=== PATIENT | female | born 1935 | race Caucasian/White ===

== ENCOUNTER 2017-02-23 15:20 | Inpatient (IN) | payer MEDICARE, OTHER ==
[~2017-02-23] VITALS: Ht 167.6 cm; Wt 67.7 kg
[2017-02-23] MEDS ORDERED: LISI40TA PO (17:13)
[2017-02-23] MEDS ORDERED: PEN400T PO (17:13)
[2017-02-23] MEDS ORDERED: METO-158 PO (17:13)
[2017-02-23] MEDS ORDERED: ALEN35TA18 PO (17:13)
[2017-02-23] MEDS ORDERED: ESCI10TA PO (17:13)
[2017-02-23] MEDS ORDERED: DICL-176 PO (17:13)
[2017-02-23] MEDS ORDERED: HCTZ25T PO (17:13)
[2017-02-23 17:39] LABS: Basophils # (auto) 0 uL; Basophils % (auto) 0.4 % (0.0-2.0); Eosinophils # (auto) 0.1 uL; Eosinophils % (auto) 1.1 % (0.0-7.0); Hematocrit 36.9 % (36.0-46.0); Hemoglobin 12.2 g/dL (12.2-16.2); Lymphocytes # (auto) 0.9 uL; Lymphocytes % (auto) 8.8 % (10.0-50.0); Mean Corpuscular Hemoglobin 31.1 pg (28.0-32.0); Mean Corpuscular Volume 94.2 fL (80.0-100.0); Monocytes # (auto) 0.5 uL; Monocytes % (auto) 5.3 % (0.0-12.0); Neutrophils # (auto) 8.6 uL; Neutrophils % (auto) 84.4 % (37.0-80.0); Platelet Count (auto) 379 10^3/uL (140-450); Red Blood Cells 3.92 10^6/uL (4.0-5.20); Red Cell Distribution Width 13.7 % (11.8-14.3); White Blood Cell 10.2 10^3/uL (4.4-10.8)
[2017-02-23 17:48] LABS: Alanine Aminotransferase 32 U/L (13-56); Albumin 3.5 g/dL (3.4-5.0); Alkaline Phosphatase 92 U/L (45-117); Anion Gap 9 (5-15); Aspartate Aminotransferase 23 U/L (15-37); BUN/Creatinine Ratio 33.3; Bilirubin, Total 0.4 mg/dL (0.2-1.0); Blood Urea Nitrogen 37 mg/dL (7-18); Calcium 8.7 mg/dL (8.5-10.1); Carbon Dioxide 24 mmol/L (21-32); Chloride 109 mmol/L (98-107); GFR African American 61 mL/min; GFR Non-African American 50 mL/min; Glucose 120 mg/dL (74-106); Magnesium 2.3 mg/dL (1.6-2.6); Potassium 3.8 mmol/L (3.5-5.1); Sodium 142 mmol/L (136-145); Total Protein 6.8 g/dL (6.4-8.2)
[2017-02-23 18:26] LABS: INR 0.97 (0.9-1.15); Partial Thromboplastin Time 22.6 sec (22.64-33.71); Prothrombin Time 10.6 sec (9.37-12.3)
[2017-02-23] MEDS ORDERED: ACETAMINOPHEN 325 MG TAB PO PRN (19:45)
[2017-02-23] MEDS ORDERED: DOCUSATE SOD 100 MG CAP PO PRN (19:45)
[2017-02-23] MEDS ORDERED: TEMAZEPAM 15 MG CAP PO PRN (19:45)
[2017-02-23] MEDS ORDERED: HYDROcodone-ACET 5/325MG TAB PO PRN (19:45)
[2017-02-23] MEDS ORDERED: NITROGLYCERIN 0.4 MG SL TAB SL PRN (19:45)
[2017-02-23] MEDS ORDERED: ONDANSETRON HCL 4 MG/2 ML VIAL IV PRN (19:45)
[2017-02-23] MEDS ORDERED: ALENDRONATE SODIUM 10 MG TAB PO SCH (19:45)
[2017-02-23] MEDS ORDERED: ASPirin-EC 81 mg tab PO ONE (19:45)
[2017-02-23] MEDS ORDERED: MORPHINE SULFATE 10 MG/ML INJ 1ML SDV IV PRN ×2 (19:45)
[2017-02-23] MEDS: ENOXAPARIN SOD 40 MG/0.4 ML SYRINGE SC SCH (19:56)
[2017-02-23] MEDS: FAMOTIDINE 20 MG TAB PO SCH (19:57)
[2017-02-23 22:00] VITALS: BP 157/82
[2017-02-23 22:30] VITALS: BP 157/82
[2017-02-24] VITALS (7 sets, daily range): BP systolic 98–150; BP diastolic 47–77
[2017-02-24] MEDS: SODIUM CHLOR 0.9% PF (SALINE LOCK) 10ML VIAL IV SCH ×4 (00:02→22:01)
[2017-02-24] MEDS: METOPROLOL TARTRATE 50 MG TAB PO SCH ×3 (00:03→22:03)
[2017-02-24] MEDS: PENTOXIFYLLINE 400 MG ER TAB PO SCH ×3 (00:03→22:03)
[2017-02-24] MEDS: DICLOFENAC 100 MG PO SCH ×3 (00:04→22:00)
[2017-02-24] MEDS: ATORVASTATIN 20 MG TAB PO SCH ×2 (00:06→22:01)
[2017-02-24 05:41] LABS: Urine Bacteria MANY /hpf (None Seen); Urine Blood Negative /uL (Negative); Urine Hyaline Cast FEW /lpf (0 - 2); Urine Mucus FEW (None Seen); Urine Specific Gravity 1.015 (1.001-1.035); Urine WBC 24 /hpf (0 - 5)
[2017-02-24 08:50] LABS: Basophils # (auto) 0 uL; Basophils % (auto) 0.6 % (0.0-2.0); Eosinophils # (auto) 0.2 uL; Eosinophils % (auto) 2.1 % (0.0-7.0); Hemoglobin 11.9 g/dL (12.2-16.2); Lymphocytes # (auto) 1.9 uL; Lymphocytes % (auto) 24.6 % (10.0-50.0); Mean Corpuscular Hemoglobin 31.5 pg (28.0-32.0); Mean Corpuscular Volume 92.6 fL (80.0-100.0); Monocytes # (auto) 0.5 uL; Neutrophils % (auto) 65.7 % (37.0-80.0); Nucleated Red Blood Cells % 0.1 %; Platelet Count (auto) 363 10^3/uL (140-450); Red Blood Cells 3.78 10^6/uL (4.0-5.20); Red Cell Distribution Width 13.5 % (11.8-14.3); White Blood Cell 7.6 10^3/uL (4.4-10.8)
[2017-02-24 09:21] LABS: Albumin 3.5 g/dL (3.4-5.0); BUN/Creatinine Ratio 35.2; Bilirubin, Total 0.5 mg/dL (0.2-1.0); Calcium 8.9 mg/dL (8.5-10.1); Potassium 3.7 mmol/L (3.5-5.1); Total Protein 6.9 g/dL (6.4-8.2)
[2017-02-24] MEDS: CITALOPRAM HYDROBR 20 MG TAB PO SCH (09:38)
[2017-02-24] MEDS: FAMOTIDINE 20 MG TAB PO SCH (09:38)
[2017-02-24] MEDS: MULTIPLE VITAMIN TAB PO SCH (09:38)
[2017-02-24] MEDS: HCTZ 25 MG TAB PO SCH (09:40)
[2017-02-24] MEDS: LISINOPRIL 20 MG TAB PO SCH (09:41)
[2017-02-24] MEDS: ASPirin-EC 81 mg tab PO SCH (09:41)
[2017-02-24] MEDS: ENOXAPARIN SOD 40 MG/0.4 ML SYRINGE SC SCH (09:42)
[2017-02-24] MEDS ORDERED: cefTRIAXone 1GM/10ml IVPUSH 10 ML IV ONE (13:00)
[2017-02-24] MEDS ORDERED: LORazepam 2MG/ML-1ML VIAL IV PRN (20:45)
[2017-02-25] VITALS (7 sets, daily range): BP systolic 0–143; BP diastolic 53–92
[2017-02-25] MEDS: SODIUM CHLOR 0.9% PF (SALINE LOCK) 10ML VIAL IV SCH ×3 (05:25→22:00)
[2017-02-25] MEDS: cefTRIAXone 1GM/10ml IVPUSH 10 ML IV SCH (09:26)
[2017-02-25] MEDS: PENTOXIFYLLINE 400 MG ER TAB PO SCH ×2 (09:26→22:37)
[2017-02-25] MEDS: LISINOPRIL 20 MG TAB PO SCH (09:26)
[2017-02-25] MEDS: HCTZ 25 MG TAB PO SCH (09:27)
[2017-02-25] MEDS: ASPirin-EC 81 mg tab PO SCH (09:27)
[2017-02-25] MEDS: METOPROLOL TARTRATE 50 MG TAB PO SCH ×2 (09:27→22:38)
[2017-02-25] MEDS: CITALOPRAM HYDROBR 20 MG TAB PO SCH (09:27)
[2017-02-25] MEDS: FAMOTIDINE 20 MG TAB PO SCH (09:27)
[2017-02-25] MEDS: MULTIPLE VITAMIN TAB PO SCH (09:28)
[2017-02-25] MEDS: ENOXAPARIN SOD 40 MG/0.4 ML SYRINGE SC SCH (09:28)
[2017-02-25] MEDS: DICLOFENAC 100 MG PO SCH ×2 (09:31→22:00)
[2017-02-25] MEDS: ATORVASTATIN 20 MG TAB PO SCH (22:37)
[2017-02-26 05:00] VITALS: BP 104/49
[2017-02-26] MEDS: SODIUM CHLOR 0.9% PF (SALINE LOCK) 10ML VIAL IV SCH (05:54)
[2017-02-26 08:00] VITALS: BP 90/40
[2017-02-26 08:48] VITALS: BP 90/40
[2017-02-26] MEDS: cefTRIAXone 1GM/10ml IVPUSH 10 ML IV SCH (09:00)
[2017-02-26] MEDS: ENOXAPARIN SOD 40 MG/0.4 ML SYRINGE SC SCH (10:00)
[2017-02-26] MEDS: HCTZ 25 MG TAB PO SCH (10:00)
[2017-02-26] MEDS: DICLOFENAC 100 MG PO SCH (10:00)
[2017-02-26] MEDS: ASPirin-EC 81 mg tab PO SCH (10:00)
[2017-02-26] MEDS: LISINOPRIL 20 MG TAB PO SCH (10:00)
[2017-02-26] MEDS: METOPROLOL TARTRATE 50 MG TAB PO SCH (10:00)
[2017-02-26] MEDS: FAMOTIDINE 20 MG TAB PO SCH (10:46)
[2017-02-26] MEDS: PENTOXIFYLLINE 400 MG ER TAB PO SCH (10:46)
[2017-02-26] MEDS: MULTIPLE VITAMIN TAB PO SCH (10:46)
[2017-02-26] MEDS: CITALOPRAM HYDROBR 20 MG TAB PO SCH (10:46)
[2017-02-26 11:38] VITALS: BP 90/40
[2017-02-26 13:28] VITALS: BP 124/64
== END 2017-02-26 12:40 | disposition home or self-care (01) | DRG 690 ==
LOC: ER 15:26 → TELE 15:27 → TELE-EAST 21:38
PROVIDERS: ADMIT Internal Medicine; ATTEND Family Medicine
DX: N39.0 Urinary tract infection, site not specified (principal); E86.0 Dehydration; G45.9 Transient cerebral ischemic attack, unspecified; I73.9 Peripheral vascular disease, unspecified; Y92.89 Other specified places as the place of occurrence of the external cause; Y99.8 Other external cause status; N18.3 Chronic kidney disease, stage 3 (moderate); W19.XXXA Unspecified fall, initial encounter; F41.9 Anxiety disorder, unspecified; I12.9 Hypertensive chronic kidney disease with stage 1 through stage 4 chronic kidney disease, or unspecified chronic kidney disease; M19.90 Unspecified osteoarthritis, unspecified site; M81.0 Age-related osteoporosis without current pathological fracture; Y93.89 Activity, other specified; Z82.49 Family history of ischemic heart disease and other diseases of the circulatory system; Z82.3 Family history of stroke
CPT/HCPCS: 36415; 70450; 71045; 80053; 81001; 83735; 84484; 85025; 85610; 85730; 87040; 87086; 92610; 93005; 93306; 93886; 94761; 95819

== ENCOUNTER 2023-07-30 17:02 | Inpatient (IN) | payer MEDICARE ==
[~2023-07-30] VITALS: Ht 167.6 cm; Wt 66.7 kg
[~2023-07-30 17:02] MED LIST: ALEN35TA18 PO; DICL75TA3 PO; ESCI10TA PO; HYDR25TA5 PO; LISI40TA16 PO; METO-158 PO; PEN400T PO
[2023-07-30] MEDS: SODIUM CHLORIDE 0.9% 1,000 ML IV ONE (17:26)
[2023-07-30 17:29] VITALS: PULSE 76; RESP 18; O2SAT 95
[2023-07-30 18:08] LABS: Basophils # (auto) 0.1 10 ^3/uL (0-0.2); Basophils % (auto) 0.6 % (0.0-2.0); Eosinophils # (auto) 0.1 10 ^3/uL (0-0.8); Eosinophils % (auto) 1.4 % (0.0-7.0); Hematocrit 39.7 % (36.0-46.0); Hemoglobin 13.2 g/dL (12.2-16.2); Lymphocytes # (auto) 1.6 10 ^3/uL (0.4-5.4); Lymphocytes % (auto) 18.5 % (10.0-50.0); Mean Corpuscular Hemoglobin 30.7 pg (28.0-32.0); Mean Corpuscular Hgb Conc. 33.3 g/dL (32.0-36.0); Monocytes # (auto) 0.4 10 ^3/uL (0-1.3); Monocytes % (auto) 5.1 % (0.0-12.0); Neutrophils # (auto) 6.4 10 ^3/uL (1.6-8.6); Neutrophils % (auto) 74.4 % (37.0-80.0); Nucleated Red Blood Cells % 0.1 %; Red Blood Cells 4.31 10^6/uL (4.0-5.20); Red Cell Distribution Width 14.6 % (11.8-14.3); White Blood Cell 8.5 10^3/uL (4.4-10.8)
[2023-07-30 18:10] LABS: Chloride 110 mmol/L (98-107); Potassium 4.2 mmol/L (3.5-5.1); Sodium 142 mmol/L (136-145)
[2023-07-30 18:11] LABS: Anion Gap 5 (5-15); Calcium 10.1 mg/dL (8.7-10.4); Carbon Dioxide 27 mmol/L (20-30)
[2023-07-30 18:16] LABS: Blood Urea Nitrogen 15 mg/dL (9-23); Glucose 131 mg/dL (74-106); Lipase 55 U/L (12-53)
[2023-07-30 20:15] VITALS: PULSE 85; RESP 20; O2SAT 95
[2023-07-30] MEDS ORDERED: DOCUSATE SOD 100 MG CAP PO PRN (22:45)
[2023-07-30] MEDS ORDERED: HYDROcodone-ACET 5/325MG TAB PO PRN (22:45)
[2023-07-30] MEDS ORDERED: NITROGLYCERIN 0.4 MG SL TAB SL PRN (22:45)
[2023-07-30] MEDS ORDERED: MORPHINE SULFATE INJ 2 MG/ml SYRG IV PRN (22:45)
[2023-07-30] MEDS ORDERED: ONDANSETRON HCL 4 MG/2 ML VIAL IV PRN (22:45)
[2023-07-30] MEDS ORDERED: ACETAMINOPHEN 325 MG TAB PO PRN (22:45)
[2023-07-30] MEDS ORDERED: DEXTROSE (50%) 50ML SYRG IV PRN (22:45)
[2023-07-30] MEDS ORDERED: hydrALAZINE HCL 20 MG/ML VL IV PRN (22:45)
[2023-07-30 23:26] LABS: Urine Bacteria None Seen /hpf (None Seen); Urine WBC None Seen /hpf (0 - 5)
[2023-07-30 23:43] LABS: Urine Blood Negative /uL (Negative); Urine Clarity Turbid (Clear); Urine Color Yellow (Yellow); Urine Protein, UAD TRACE (Negative); Urine Urobilinogen Normal (Negative); Urine pH 5.5 (5.0-9.0)
[2023-07-31] VITALS (11 sets, daily range): BP systolic 119–159; BP diastolic 36–85; PULSE 72–121; RESP 16–18; TEMP 97.4–98.7; O2SAT 93–100
[2023-07-31] MEDS: SODIUM CHLOR 0.9% PF (SALINE LOCK) 10ML VIAL/SYR IV SCH (05:39)
[2023-07-31] MEDS: InsuLIN REG 1unit/0.01ml Soln (100units/ml) SC SCH ×2 (06:24→22:00)
[2023-07-31] MEDS: ACCU-CHEK COMFORT CURVE STRIP VI SCH (06:24)
[2023-07-31 06:57] LABS: Basophils # (auto) 0 10 ^3/uL (0-0.2); Basophils % (auto) 0.6 % (0.0-2.0); Eosinophils # (auto) 0.1 10 ^3/uL (0-0.8); Eosinophils % (auto) 2.1 % (0.0-7.0); Hematocrit 32.9 % (36.0-46.0); Hemoglobin 11.2 g/dL (12.2-16.2); Lymphocytes # (auto) 2.1 10 ^3/uL (0.4-5.4); Lymphocytes % (auto) 29.9 % (10.0-50.0); Mean Corpuscular Hgb Conc. 34.1 g/dL (32.0-36.0); Mean Corpuscular Volume 90.9 fL (80.0-100.0); Monocytes # (auto) 0.4 10 ^3/uL (0-1.3); Neutrophils # (auto) 4.3 10 ^3/uL (1.6-8.6); Neutrophils % (auto) 61.4 % (37.0-80.0); Nucleated Red Blood Cells % 0.1 %; Red Blood Cells 3.62 10^6/uL (4.0-5.20); Red Cell Distribution Width 14.4 % (11.8-14.3); White Blood Cell 6.9 10^3/uL (4.4-10.8)
[2023-07-31 07:30] LABS: Alanine Aminotransferase 17 U/L (7-40); Albumin 3.5 g/dL (3.2-4.8); Alkaline Phosphatase 85 U/L (46-116); Anion Gap 5 (5-15); Aspartate Aminotransferase 20 U/L (13-40); BUN/Creatinine Ratio 23.3 (10.0-20.0); Bilirubin, Total 0.6 mg/dL (0.2-1.0); Blood Urea Nitrogen 14 mg/dL (9-23); Calcium 8.8 mg/dL (8.5-10.1); Carbon Dioxide 25 mmol/L (20-30); Chloride 113 mmol/L (98-107); Glucose 73 mg/dL (74-106); Potassium 3.8 mmol/L (3.5-5.1); Sodium 143 mmol/L (136-145); Total Protein 5.4 g/dL (5.7-8.2)
[2023-07-31] MEDS: METOPROLOL TARTRATE 25 MG TAB PO SCH (09:35)
[2023-08-01 01:00] VITALS: BP 134/76; PULSE 77; RESP 18; TEMP 98.1; O2SAT 96
[2023-08-01 05:00] VITALS: BP 137/72; PULSE 62; RESP 16; TEMP 98; O2SAT 94
[2023-08-01 08:00] VITALS: PULSE 80; PULSE 99; RESP 16
[2023-08-01 09:03] VITALS: BP 150/78; PULSE 69; RESP 17; TEMP 97.7; O2SAT 98
[2023-08-01 14:32] VITALS: BP 133/63; PULSE 66; RESP 17; TEMP 98.1; O2SAT 95
== END 2023-08-01 17:20 | disposition home health service (06) | DRG 640 ==
LOC: ER 17:02 → EDBD 17:02 → TELE 22:49 → TELE-WESTW 23:56
PROVIDERS: ADMIT Nurse Practitioner Family; ATTEND Nurse Practitioner Family
DX: E86.0 Dehydration (principal); G93.41 Metabolic encephalopathy; N39.0 Urinary tract infection, site not specified; E11.9 Type 2 diabetes mellitus without complications; I10 Essential (primary) hypertension; Z79.899 Other long term (current) drug therapy
CPT/HCPCS: 36415; 70450; 80048; 80053; 81001; 82962; 83690; 83880; 84484; 85025; 93005; 96360; 97163; G0378